=== PATIENT | male | born 1995 ===

== ENCOUNTER 2017-10-13 17:05 | Emergency (ER) | payer OTHER ==
[2017-10-13 17:20] VITALS: RESP 18; TEMP 98.2
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
[2017-10-13 19:17] VITALS: BP 103/55; PULSE 70; O2SAT 100
== END 2017-10-13 19:00 | disposition home or self-care (01) ==
LOC: ED 17:05 → MERGE 17:05 → ED 19:00
DX: F07.81 Postconcussional syndrome (principal); S09.90XA Unspecified injury of head, initial encounter; V49.59XA Passenger injured in collision with other motor vehicles in traffic accident, initial encounter; Y92.410 Unspecified street and highway as the place of occurrence of the external cause